=== PATIENT | male | born 1975 | race Caucasian/White ===

== ENCOUNTER 2018-12-23 17:47 | Emergency (ER) | payer BC ==
[2018-12-23 18:35] VITALS: RESP 18
[2018-12-23] MEDS ORDERED: ASPIRIN 81 MG PO STA (18:51)
[2018-12-23] MEDS ORDERED: SODIUM CHLORIDE 0.9% 1,000 ML IV STA ×2 (18:51)
--- NOTE | 2018-12-23 18:57 | ED ---
Dizziness HPI - General Chief Complaint: Dizziness Stated Complaint: SOB, cold sweats Time Seen by Provider: 12/23/18 18:42 Source: patient, RN notes reviewed, old records reviewed Mode of arrival: ambulatory Limitations: no limitations - History of Present Illness Initial Comments: 43-year-old male presents emergency department today with chief complaint of dizziness lightheadedness and episodes of shortness of breath. Reports it happened at 340 when he returned home from work. Patient reports that he was having some episodes of diaphoresis at that time. He states that now he has a slight heaviness to his chest he rates the pain 3 out of 10. No cardiac history or family history of cardiac disease. Nonsmoker and generally healthy. - Related Data Home Medications Medication Instructions Recorded Confirmed Magnesium 200 mg PO DAILY 12/23/18 12/23/18 Multivitamins, Thera [Multivitamin 1 tab PO DAILY 12/23/18 12/23/18 (formulary)] Allergies Allergy/AdvReac Type Severity Reaction Status Date / Time No Known Allergies Allergy Verified 12/23/18 22:11 Review of Systems ROS Statement: Those systems with pertinent positive or pertinent negative responses have been documented in the HPI. ROS Other: All systems not noted in ROS Statement are negative. Past Medical History Past Medical History: No Reported History History of Any Multi-Drug Resistant Organisms: None Reported Past Surgical History: Hernia Repair Past Psychological History: No Psychological Hx Reported Smoking Status: Never smoker Past Alcohol Use History: None Reported Past Drug Use History: None Reported General Exam - General Exam Comments Initial Comments: This is a 43-year-old male. Alert and oriented. No distress. Limitations: no limitations General appearance: alert, in no apparent distress Head exam: Present: atraumatic, normocephalic, normal inspection Eye exam: Present: normal appearance, PERRL, EOMI. Absent: scleral icterus, conjunctival injection, periorbital swelling ENT exam: Present: normal exam, mucous membranes moist Neck exam: Present: normal inspection. Absent: tenderness, meningismus, lymphadenopathy Respiratory exam: Present: normal lung sounds bilaterally. Absent: respiratory distress, wheezes, rales, rhonchi, stridor Cardiovascular Exam: Present: regular rate, normal rhythm, normal heart sounds. Absent: systolic murmur, diastolic murmur, rubs, gallop, clicks GI/Abdominal exam: Present: soft, normal bowel sounds. Absent: distended, tenderness, guarding, rebound, rigid Extremities exam: Present: normal inspection, full ROM, normal capillary refill. Absent: tenderness, pedal edema, joint swelling, calf tenderness Back exam: Present: normal inspection Neurological exam: Present: alert, oriented X3, CN II-XII intact Psychiatric exam: Present: normal affect, normal mood Course Vital Signs 12/23/18 12/23/18 12/23/18 18:31 19:30 20:28 Temperature 98.2 F Pulse Rate 51 L 54 L 54 L Respiratory 18 18 18 Rate Blood Pressure 112/69 99/64 111/64 O2 Sat by Pulse 99 99 99 Oximetry 12/23/18 12/23/18 21:30 22:48 Temperature 98.0 F Pulse Rate 47 L 54 L Respiratory 18 18 Rate Blood Pressure 118/66 118/69 O2 Sat by Pulse 99 99 Oximetry Medical Decision Making - Medical Decision Making 43-year-old male presents today with an episode of sweating, and shortness of breath. Also stated he had some mild chest discomfort. Patient upon arrival states that she has been diminished. Patient was given IV fluids labwork obtained. EKG was reviewed and normal. Troponin initially was negative. We did repeat this. Patient's repeat test was unremarkable for any changes in his troponin. was reevaluated and continues to state he has no further chest pain at this time. Patient was offered admission for concern for atypical chest pain, however with shared decision making Patient reports he was prefer to Be discharged home with close follow-up with PCP. Assessment have any further episodes of chest pain he would need to return. - Lab Data Result diagrams: 12/23/18 19:15 12/23/18 19:15 Lab Results 12/23/18 12/23/18 12/23/18 Range/Units 19:15 19:15 19:15 WBC 14.3 H (3.8-10.6) k/uL RBC 4.93 (4.30-5.90) m/uL Hgb 14.1 (13.0-17.5) gm/dL Hct 43.3 (39.0-53.0) % MCV 87.8 (80.0-100.0) fL MCH 28.5 (25.0-35.0) pg MCHC 32.5 (31.0-37.0) g/dL RDW 13.0 (11.5-15.5) % Plt Count 271 (150-450) k/uL Neutrophils % 85 % Lymphocytes % 10 % Monocytes % 4 % Eosinophils % 0 % Basophils % 0 % Neutrophils # 12.1 H (1.3-7.7) k/uL Lymphocytes # 1.4 (1.0-4.8) k/uL Monocytes # 0.6 (0-1.0) k/uL Eosinophils # 0.0 (0-0.7) k/uL Basophils # 0.1 (0-0.2) k/uL PT (9.0-12.0) sec INR (<1.2) APTT (22.0-30.0) sec Sodium 140 (137-145) mmol/L Potassium 4.0 (3.5-5.1) mmol/L Chloride 104 (98-107) mmol/L Carbon Dioxide 27 (22-30) mmol/L Anion Gap 9 mmol/L BUN 17 (9-20) mg/dL Creatinine 1.00 (0.66-1.25) mg/dL Est GFR (CKD-EPI)AfAm >90 (>60 ml/min/1.73 sqM) Est GFR (CKD-EPI)NonAf >90 (>60 ml/min/1.73 sqM) Glucose 98 (74-99) mg/dL Calcium 9.5 (8.4-10.2) mg/dL Magnesium 2.1 (1.6-2.3) mg/dL Total Bilirubin 0.7 (0.2-1.3) mg/dL AST 31 (17-59) U/L ALT 43 (21-72) U/L Alkaline Phosphatase 76 (38-126) U/L Troponin I (0.000-0.034) ng/mL NT-Pro-B Natriuret Pep 53 pg/mL Total Protein 7.2 (6.3-8.2) g/dL Albumin 4.3 (3.5-5.0) g/dL 12/23/18 12/23/18 12/23/18 Range/Units 19:15 19:15 21:36 WBC (3.8-10.6) k/uL RBC (4.30-5.90) m/uL Hgb (13.0-17.5) gm/dL Hct (39.0-53.0) % MCV (80.0-100.0) fL MCH (25.0-35.0) pg MCHC (31.0-37.0) g/dL RDW (11.5-15.5) % Plt Count (150-450) k/uL Neutrophils % % Lymphocytes % % Monocytes % % Eosinophils % % Basophils % % Neutrophils # (1.3-7.7) k/uL Lymphocytes # (1.0-4.8) k/uL Monocytes # (0-1.0) k/uL Eosinophils # (0-0.7) k/uL Basophils # (0-0.2) k/uL PT 9.6 (9.0-12.0) sec INR 0.9 (<1.2) APTT 24.7 (22.0-30.0) sec Sodium (137-145) mmol/L Potassium (3.5-5.1) mmol/L Chloride (98-107) mmol/L Carbon Dioxide (22-30) mmol/L Anion Gap mmol/L BUN (9-20) mg/dL Creatinine (0.66-1.25) mg/dL Est GFR (CKD-EPI)AfAm (>60 ml/min/1.73 sqM) Est GFR (CKD-EPI)NonAf (>60 ml/min/1.73 sqM) Glucose (74-99) mg/dL Calcium (8.4-10.2) mg/dL Magnesium (1.6-2.3) mg/dL Total Bilirubin (0.2-1.3) mg/dL AST (17-59) U/L ALT (21-72) U/L Alkaline Phosphatase (38-126) U/L Troponin I <0.012 <0.012 (0.000-0.034) ng/mL NT-Pro-B Natriuret Pep pg/mL Total Protein (6.3-8.2) g/dL Albumin (3.5-5.0) g/dL 12/23/18 19:25 EKG performed at 1910 shows sinus bradycardia, nonspecific intraventricular conduction delay. Borderline EKG. Ventricular rate of 54 bpm. Verbal is 160 ms. QRS duration is 124 ms. QT QTc 442/419 ms. - Radiology Data Radiology results: report reviewed Normal chest x-ray. Disposition Clinical Impression: Shortness of breath, Diaphoresis Disposition: HOME SELF-CARE Condition: Good Instructions (If sedation given, give patient instructions): Dizziness (ED) Additional Instructions: Patient was to follow-up with primary care doctor and cardiology. This any further chest discomfort or any other complaints return to read check it ER. Follow-up with her primary care physician. Recommended getting a stress test by cardiology. Is patient prescribed a controlled substance at d/c from ED?: No Referrals: Bart Fernandez MD [Primary Care Provider] - 1-2 days Jt Rodriguez MD [STAFF PHYSICIAN] - 1-2 days Time of Disposition: 22:35
[2018-12-23 19:37] LABS: Basophils # (A) 0.1 k/uL (0-0.2); Basophils % (A) 0 %; Eosinophils % (A) 0 %; HCT 43.3 % (39.0-53.0); HGB 14.1 gm/dL (13.0-17.5); Lymphocytes # (A) 1.4 k/uL (1.0-4.8); Lymphocytes % (A) 10 %; MCH 28.5 pg (25.0-35.0); MCHC 32.5 g/dL (31.0-37.0); MCV 87.8 fL (80.0-100.0); Mean Platelet Volume 7.2; Monocytes # (A) 0.6 k/uL (0-1.0); Monocytes % (A) 4 %; Neutrophils # (A) 12.1 k/uL (1.3-7.7); Neutrophils % (A) 85 %; Platelet Count 271 k/uL (150-450); RBC 4.93 m/uL (4.30-5.90); WBC 14.3 k/uL (3.8-10.6)
[2018-12-23 19:42] LABS: ALT 43 U/L (21-72); AST 31 U/L (17-59); African American GFR (CKD) >90 (>60 ml/min/1.73 sqM); Albumin 4.3 g/dL (3.5-5.0); Alkaline Phosphatase 76 U/L (38-126); Anion Gap 9 mmol/L; Blood Urea Nitrogen 17 mg/dL (9-20); Calcium 9.5 mg/dL (8.4-10.2); Carbon Dioxide 27 mmol/L (22-30); Chloride 104 mmol/L (98-107); Glucose 98 mg/dL (74-99); Magnesium 2.1 mg/dL (1.6-2.3); Sodium 140 mmol/L (137-145); Total Bilirubin 0.7 mg/dL (0.2-1.3); Total Protein 7.2 g/dL (6.3-8.2)
[2018-12-23 19:48] LABS: INR 0.9 (<1.2); Partial Thromboplastin Time 24.7 sec (22.0-30.0); Prothrombin Time 9.6 sec (9.0-12.0)
--- NOTE | 2018-12-23 19:50 | XR ---
EXAMINATION TYPE: XR chest 2V DATE OF EXAM: 12/23/2018 COMPARISON: NONE HISTORY: Nausea TECHNIQUE: Frontal and lateral views of the chest are obtained. FINDINGS: Heart and mediastinum are normal. Lungs are clear. Diaphragm is normal. Bony thorax appear s normal. There are chest leads. IMPRESSION: Normal chest
[2018-12-23 22:49] VITALS: BP 118/69; PULSE 54; TEMP 98
== END 2018-12-23 22:49 | disposition home or self-care (01) ==
LOC: EC 17:47
DX: R06.02 Shortness of breath (principal); R61 Generalized hyperhidrosis; R07.89 Other chest pain; R42 Dizziness and giddiness; Z53.29 Procedure and treatment not carried out because of patient's decision for other reasons
CPT/HCPCS: 36415; 71046; 80053; 83735; 83880; 84484; 85025; 85610; 85730; 93005; 96360; 96361; 99284